=== PATIENT | male | born 1965 | race Caucasian/White ===

== ENCOUNTER 2019-06-13 06:05 | Emergency (ER) | payer OTHER ==
[~2019-06-13] VITALS: Ht 182.9 cm; Wt 82.6 kg
[2019-06-13 06:11] VITALS: Ht 182.9 cm; Wt 82.6 kg
[2019-06-13 07:37] VITALS: BP 101/58
== END 2019-06-13 07:37 | disposition home or self-care (01) ==
LOC: ED 06:05
DX: S29.012A Strain of muscle and tendon of back wall of thorax, initial encounter (principal); V43.52XA Car driver injured in collision with other type car in traffic accident, initial encounter; Y93.I9 Activity, other involving external motion; Y92.413 State road as the place of occurrence of the external cause; Y99.8 Other external cause status
CPT/HCPCS: Q0092